=== PATIENT | female | born 1965 | race Two or more races ===

== ENCOUNTER 2020-02-13 11:12 | Outpatient (CLI) | payer OTHER | END 2020-02-13 11:15 | disposition home or self-care (01) | LOC: MRI 11:12 | PROVIDERS: ATTEND Physical Medicine & Rehabilitation | DX: M54.2 Cervicalgia (principal); M54.12 Radiculopathy, cervical region | CPT/HCPCS: 72141 ==

== ENCOUNTER 2020-06-07 11:02 | Outpatient (CLI) | payer OTHER | END 2020-06-07 11:13 | disposition home or self-care (01) | LOC: NUCLEAR 11:02 | PROVIDERS: ATTEND Internal Medicine Rheumatology | DX: M81.0 Age-related osteoporosis without current pathological fracture (principal) ==